=== PATIENT | male | born 1990 | race Caucasian/White ===

== ENCOUNTER 2018-07-31 06:29 | Emergency (ER) | payer BC ==
[~2018-07-31] VITALS: Ht 170.2 cm; Wt 75.3 kg
--- NOTE | 2018-07-31 06:44 | NUR ---
PT A/OX4, PRESENTS TO THE ER C/O ALLERGIC REACTION. PT STATES HE WOKE UP W/ A RASH THROUGHOUT THE BODY APPROXIMATELY 10 HOURS AGO. PT IS CURRENTLY ON 10TH DAY OF AMOXICILLIN FOR STREP THROAT. PT IS COMPLAINING OF TIGHTNESS OF THE THROAT. VSS. PT DOES NOT APPEAR TO BE IN ANY RESPIRATORY DISTRESS AT THIS TIME.
--- NOTE | 2018-07-31 06:46 | NUR ---
JONH QUILES AT BEDSIDE FOR MSE.
--- NOTE | 2018-07-31 06:48 | NUR ---
PT DENIES PAIN, C/P, SOB, N/V/D, DIZZINESS, HEADACHE.
[2018-07-31] MEDS ORDERED: FAMOTIDINE. 20 MG/2 ML VIAL IV ONE ×2 (07:00→07:08)
[2018-07-31] MEDS ORDERED: EPINEPHRINE 1 MG/1 ML AMP ONE ×2 (07:00→07:08)
[2018-07-31] MEDS ORDERED: FAMOTIDINE IV ONE (07:00)
[2018-07-31] MEDS ORDERED: methylPREDNISolone SOD SUCC 125 MG/2 ML VIAL IV ONE (07:00)
[2018-07-31] MEDS ORDERED: DEXTROSE 5% IV ONE (07:00)
[2018-07-31] MEDS ORDERED: EPINEPHRINE 1 MG/1 ML AMP SQ ONE (07:00)
[2018-07-31] MEDS ORDERED: IV NORMAL SALINE 1000 ML BAG IV ONE (07:00)
[2018-07-31] MEDS ORDERED: methylPREDNISolone SOD SUCC 125 MG/2 ML VIAL ONE (07:01)
--- NOTE | 2018-07-31 07:05 | NUR ---
REPORT GIVEN TO ANIRUDH LINDER.
[2018-07-31] MEDS ORDERED: diphenhydrAMINE 50 MG/1 ML VIAL IV ONE (08:15)
[2018-07-31] MEDS ORDERED: diphenhydrAMINE 50 MG/1 ML VIAL ONE (08:35)
--- NOTE | 2018-07-31 08:42 | NUR ---
PT WAS D/C'd TO HOME. D/C INSTRUCTIONS GIVEN TO THE PT.
[2018-07-31 08:45] VITALS: BP 128/72
== END 2018-07-31 09:08 | disposition home or self-care (01) ==
LOC: ER 06:31
DX: T78.40XA Allergy, unspecified, initial encounter (principal)
CPT/HCPCS: 96365; 96372; 96375; 99283; J0171 ×2; J1200; J2930; J3490 ×2; J7030; J7050